=== PATIENT | female | born 1960 | race Caucasian/White ===

== ENCOUNTER → 2017-04-08 | Day surgery (SDC) | payer BC, OTHER ==
[~2017-04-08] VITALS: Ht 160 cm; Wt 79.4 kg
[~2017-04-08] MED LIST: B COTAB6 PO; BACITRACIN PWD 50,000 UNITS VIAL As Ordered ONE; BUPIVACAINE HCL 0.5% 30 ML VIAL As Ordered ONE; FLUT1SPR2; LIDOCAINE 2% INJ 100 MG/5 ML SDV (FOR ANES.) As Ordered ONE; LIDOCAINE 2% MDV 20 ML VIAL As Ordered ONE; LR 1,000 ML IV SCH; MIDAZOLAM INJ 2 MG/2 ML VIAL (J2250) As Ordered ONE; NEOSPORIN GU IRRIG 20 ML VIAL As Ordered ONE; PROBCAP4 PO; PROPOFOL 200 MG/20 ML VIAL As Ordered ONE; RANI150T PO; fentaNYL 100 MCG/2 ML INJECTION (J3010) As Ordered ONE
[2017-04-08] MEDS: dexameTHASONE 4 MG/ML 1ML VIAL (J1100) As Ordered ONE ×2 (07:49→08:06)
[2017-04-08 08:50] VITALS: BP 154/77
--- NOTE | 2017-04-09 00:18 | RO ---
DATE OF PROCEDURE: 04/08/2017 PREPROCEDURE DIAGNOSIS: Mucinoid cyst dorsal aspect right hallux. POSTPROCEDURE DIAGNOSIS: Mucinoid cyst dorsal aspect right hallux. PROCEDURE: Excision of mucinoid cyst with bipedicle lobe rotational flap right foot. SURGEON: Dr. Kota Vargas COMPARATIVE SOCIOLOGY PROFESSOR: None. ANESTHESIA: Local MAC. IRRIGATION: Dilute bacitracin, neomycin and polymyxin B solution. HEMOSTASIS: Ankle pneumatic tourniquet at 250 mmHg for 10 minutes. DESCRIPTION OF PROCEDURE: On 04/08/2017, this 57-year-old white female was taken from her hospital room to the operating room and placed on the operating table in the supine position. Following the induction of IV sedation and local and regional anesthesia, the right lower extremity was prepped and draped in the usual aseptic manner. The right lower extremity was elevated 45 degrees from the horizontal plane for the purpose of preoperative exsanguination of the limb. During this 3-minute time period, an ankle pneumatic tourniquet was applied just proximal to the medial and lateral malleolus, well-padded site. The ankle pneumatic tourniquet was rapidly inflated to 250 mmHg. Right lower extremity was returned to the operating table, sterile draping was completed and the following procedure was performed: Attention was directed to the patient's right foot, and there was noted to be a 1.1 cm mucinoid cyst of the medial aspect of the interphalangeal joint of the hallux. This was sharply excised down to the capsular structures, taking care to encompass the entire cyst, and this was extirpated from the wound and sent to pathology for diagnosis. This was flushed with copious amounts of dilute bacitracin, neomycin and polymyxin B solution. Attention was then directed and a bilobed pedicle flap was created, the first lobe was 0.6 cm from medial to lateral and the second lobe was more triangular, measuring 0.6 cm. This was then undermined and the entire bilobed pedicle was advanced onto the surgical defect. This was closed with a #4-0 Prolene suture in an simple interrupted type fashion. Attention was directed towards bandaging where a compressive dressing was applied consisting of Adaptic, 4 x 4s and Kerlix, followed by Coban. Capillary filling time was immediate to digits 1-5 of the right foot on release of the tourniquet. The patient having apparently tolerated the surgical procedure well was taken from the operating room to the recovery room, vital signs stable, patient afebrile, further monitoring by the anesthesia department. Surgical specimens removed during the operative procedure were sent to pathology for full microscopic examination. Postoperatively instructions given upon discharge.
== END | disposition home or self-care (01) ==
LOC: M SDC 06:12
PROVIDERS: ATTEND Podiatrist
DX: M67.471 Ganglion, right ankle and foot (principal); E03.9 Hypothyroidism, unspecified; K21.9 Gastro-esophageal reflux disease without esophagitis; M54.9 Dorsalgia, unspecified; Z79.899 Other long term (current) drug therapy; Z86.19 Personal history of other infectious and parasitic diseases; Z92.21 Personal history of antineoplastic chemotherapy
CPT/HCPCS: 14020; 88304; J0690; J1100; J2250; J3010

== ENCOUNTER → 2017-06-27 | Outpatient (REF) | payer OTHER ==
[~2017-06-27] MED LIST changes: -BACITRACIN PWD 50,000 UNITS VIAL As Ordered ONE; -BUPIVACAINE HCL 0.5% 30 ML VIAL As Ordered ONE; -LIDOCAINE 2% INJ 100 MG/5 ML SDV (FOR ANES.) As Ordered ONE; -LIDOCAINE 2% MDV 20 ML VIAL As Ordered ONE; -LR 1,000 ML IV SCH; -MIDAZOLAM INJ 2 MG/2 ML VIAL (J2250) As Ordered ONE; -NEOSPORIN GU IRRIG 20 ML VIAL As Ordered ONE; -PROPOFOL 200 MG/20 ML VIAL As Ordered ONE; -fentaNYL 100 MCG/2 ML INJECTION (J3010) As Ordered ONE
== END ==
LOC: M SFHCWAGY 11:17
PROVIDERS: ATTEND Nurse Practitioner Women's Health
DX: Z12.4 Encounter for screening for malignant neoplasm of cervix (principal)

== ENCOUNTER → 2017-06-27 | Outpatient (CLI) | payer BC ==
--- NOTE | 2017-06-27 14:07 | REPMRS ---
Patient History The patient states she had a clinical breast exam in Patient is postmenopausal. Family history of ovarian cancer in paternal aunt, breast cancer in paternal aunt, colorectal cancer in paternal grandmother, and colorectal cancer in maternal uncle. Reconstructions of both breasts, October 21, 2013. Digital Woman Screen Mammo: June 27, 2017 - Exam #: [id number] Bilateral CC and MLO view(s) were taken. Technologist: Claudia Balderas, Technologist Prior study comparison: June 24, 2016, digital woman screen mammo performed at [facility] [employer]. February 28, 2015, digital woman screen mammo performed at [facility] [employer] [facility]. FINDINGS: The breast tissue is heterogeneously dense. This may lower the sensitivity of mammography. There has been no change in the appearance of the mammogram from the prior studies. There is a moderate amount of residual fibroglandular tissue which is fairly symmetric. There is no interval development of dominant mass, areas of architectural distortion, or clustered microcalcification typical of malignancy. ASSESSMENT: BI-RADS/ACR category 1 mammogram. Negative. Recommendation Routine screening mammogram in 1 year (for women over age 40). This mammogram was interpreted with the aid of an FDA-approved computer-aided dectection system. Electronically Signed By: Ronnie Auguste MD 06/27/17 [id number]
== END ==
LOC: M WHC 11:07
PROVIDERS: ATTEND Nurse Practitioner Women's Health
DX: Z12.31 Encounter for screening mammogram for malignant neoplasm of breast (principal)

== ENCOUNTER → 2017-08-23 | Outpatient (CLI) | payer OTHER ==
[2017-08-23 18:59] LABS: MEAN CORPUSCULAR HEMOGLOBIN 32.5 pg (27.0-33.0); MEAN CORPUSCULAR HGB CONC 32.9 g/dl (32.0-36.5); MEAN CORPUSCULAR VOLUME 98.6 fl (80.0-96.0); PLATELET COUNT, AUTOMATED 344 10^3/uL (150-450); RED CELL DISTRIBUTION WIDTH 13.1 % (11.5-14.5); WHITE BLOOD COUNT 5.7 10^3/uL (4.0-10.0)
[2017-08-23 21:12] LABS: ERYTHROCYTE SEDIMENTATION RATE 22 mm/hr (0-30)
== END ==
LOC: M WUC 11:22
PROVIDERS: ATTEND Physician Assistant
DX: M54.2 Cervicalgia (principal)

== ENCOUNTER → 2018-06-28 | Outpatient (REF) | payer OTHER ==
[2018-06-28 15:05] LABS: FREE T4 1.06 NG/DL (0.76-1.46)
== END ==
LOC: M LABDRAW1 11:59
DX: E03.9 Hypothyroidism, unspecified (principal)

== ENCOUNTER → 2018-06-28 | Outpatient (CLI) | payer BC | LOC: M WHC 11:17 | DX: Z12.31 Encounter for screening mammogram for malignant neoplasm of breast (principal) | CPT/HCPCS: 77067 ==

== ENCOUNTER → 2019-02-23 | Outpatient (CLI) | payer OTHER ==
[2019-02-23 12:45] LABS: BASO % 0.4 % (0.0-1.0); EOS # 0.1 10^3/uL (0.0-0.50); EOS % 2.2 % (0.0-3.0); HEMATOCRIT 41.7 % (36.0-47.0); HEMOGLOBIN 13.9 g/dl (12.0-15.5); LYMPH # 1.5 10^3/uL (1.5-4.5); LYMPH % 26.6 % (24.0-44.0); MEAN CORPUSCULAR HEMOGLOBIN 33.5 pg (27.0-33.0); MEAN CORPUSCULAR HGB CONC 33.3 g/dl (32.0-36.5); MEAN CORPUSCULAR VOLUME 100.5 fl (80.0-96.0); MONO # 0.6 10^3/uL (0.0-0.8); NEUTROPHILS # 3.3 10^3/uL (1.8-7.7); NEUTROPHILS % 60.6 % (36.0-66.0); PLATELET COUNT, AUTOMATED 275 10^3/uL (150-450); RED BLOOD COUNT 4.15 10^6/uL (4.00-5.40); WHITE BLOOD COUNT 5.5 10^3/uL (4.0-10.0)
[2019-02-23 12:59] LABS: ALBUMIN 3.5 GM/DL (3.2-5.2); ALT/SGPT 32 U/L (12-78); BILIRUBIN,TOTAL 0.6 MG/DL (0.2-1.0); BLOOD UREA NITROGEN 13 MG/DL (7-18); CALCIUM LEVEL 8.7 MG/DL (8.5-10.1); CARBON DIOXIDE LEVEL 31 MEQ/L (21-32); CHLORIDE LEVEL 107 MEQ/L (98-107); CHOLESTEROL LEVEL 192 MG/DL (<200); CREATININE FOR GFR 0.72 MG/DL (0.55-1.30); GLOMERULAR FILTRATION RATE > 60.0 (>51); GLUCOSE, FASTING 94 MG/DL (70-100); HDL CHOLESTEROL 75 MG/DL (>40); IRON (FE) 104 UG/DL (50-170); LDL CHOLESTEROL 93 MG/DL (<100); NON-HDL-C 117 MG/DL; PERCENT SATURATION 34.7 % (13.2-45.0); POTASSIUM SERUM 4.7 MEQ/L (3.5-5.1); SODIUM LEVEL 141 MEQ/L (136-145); TOTAL IRON BINDING CAPACITY 300 UG/DL (250-450); TOTAL PROTEIN 6.7 GM/DL (6.4-8.2); TRIGLYCERIDES LEVEL 121 MG/DL (<150)
== END ==
LOC: M WUC 09:21
PROVIDERS: ATTEND Nurse Practitioner Family
DX: E03.9 Hypothyroidism, unspecified (principal); D50.8 Other iron deficiency anemias

== ENCOUNTER → 2019-06-29 | Outpatient (CLI) | payer BC ==
--- NOTE | 2019-06-29 13:29 | REP ---
BILATERAL SCREENING DIGITAL MAMMOGRAM WITH 3D TOMOSYNTHESIS: There are no palpable abnormalities or other breast complaints. The the patient states she had a clinical breast examination June,. The the patient states she performs self-breast examinations four times per year. The Tyrer-Cuzick Score is: 9.3% . Comparison studies are 02/28/2015, 06/24/2016, 06/27/2017 and 06/28/2018. The patient had bilateral breast reconstruction October 2013. There are scattered areas of fibroglandular density. There is no dominant mass, micro calcific cluster or architectural distortion that would indicate malignancy. There are benign calcifications and a stable oil cyst posterosuperiorly in the right breast, unchanged. There are no additional findings on 3D tomosynthesiss. There is no change from the prior studies. Impression: BIRADS/ACR category 2 mammogram. Benign findings. Recommendation: Routine annual screening mammography. This mammogram was interpreted with the aid of a FDA approved computer-aided detection system. A. Negative mammogram reports should not delay biopsy if a dominant or clinically suspicious mass is present. B. Not all breast cancers are identified by mammography or tomosynthesis. C. Adenosis and dense breasts may obscure an underlying neoplasm. Patient letter M1. Electronically Signed by Ronnie Musa MD 06/29/2019 01:20 P
== END ==
LOC: M WHC 10:43
PROVIDERS: ATTEND Nurse Practitioner Women's Health
DX: Z12.31 Encounter for screening mammogram for malignant neoplasm of breast (principal)

== ENCOUNTER → 2019-07-27 | Outpatient (CLI) | payer OTHER, BC ==
[2019-07-27 16:34] LABS: C REACTIVE PROTEIN QUANTITATIV 1.25 MG/DL (0.00-0.30); RHEUMATOID FACTOR QUANT < 10.0 IU/ML (<15.0)
[2019-07-27 16:35] LABS: BASO % 0.5 % (0.0-1.0); EOS # 0.2 10^3/uL (0.0-0.5); EOS % 2.8 % (0.0-3.0); HEMATOCRIT 44.3 % (36.0-47.0); HEMOGLOBIN 14.5 g/dl (12.0-15.5); LYMPH # 1.5 10^3/uL (1.5-5.0); LYMPH % 22.9 % (24.0-44.0); MEAN CORPUSCULAR HEMOGLOBIN 33.1 pg (27.0-33.0); MEAN CORPUSCULAR HGB CONC 32.7 g/dl (32.0-36.5); MEAN CORPUSCULAR VOLUME 101.1 fl (80.0-96.0); MONO # 0.6 10^3/uL (0.0-0.8); NEUTROPHILS # 4.1 10^3/uL (1.5-8.5); NEUTROPHILS % 63.3 % (36.0-66.0); PLATELET COUNT, AUTOMATED 336 10^3/uL (150-450); RED BLOOD COUNT 4.38 10^6/uL (4.00-5.40); WHITE BLOOD COUNT 6.4 10^3/uL (4.0-10.0)
[2019-07-27 17:11] LABS: ERYTHROCYTE SEDIMENTATION RATE 34 mm/hr (0-30)
== END ==
LOC: M WUC 10:51
PROVIDERS: ATTEND Physician Assistant
DX: M47.896 Other spondylosis, lumbar region (principal)

== ENCOUNTER → 2019-09-19 | Day surgery (SDC) | payer BC, OTHER ==
[~2019-09-19] VITALS: Ht 160 cm; Wt 91.5 kg
[~2019-09-19] MED LIST changes: +IRON65TA2 PO; +LEVO50TA45 PO; +LIDOCAINE 2% INJ 100 MG/5 ML SDV (FOR ANES.) As Ordered ONE; +NS 1,000 ML IV SCH; +OMEP40CA97 PO; +PROPOFOL 200 MG/20 ML VIAL As Ordered ONE; +RA T500C2 PO; +SUPETAB44 PO; +fentaNYL 100 MCG/2 ML INJECTION (J3010) As Ordered ONE
--- NOTE | 2019-09-19 12:43 | ROOR ---
Patient Name: Jillian Bo Procedure Date: 09/19/2019 12:25 PM Date of : 1960 Age: 59 Room: [facility] Gender: Female Note Status: Finalized Procedure: Upper Endoscopy + Biopsies Indications: Heartburn, Exclusion of Linton's esophagus Providers: Damaso Tan MD Referring MD: Dinorah WalkerClovis)RASHEEDA Requesting Provider: Medicines: Monitored Anesthesia Care Complications: No immediate complications. Procedure: Pre-Anesthesia Assessment: - The heart rate, respiratory rate, oxygen saturations, blood pressure, adequacy of pulmonary ventilation, and response to care were monitored throughout the procedure. The Endoscope was introduced through the mouth, and advanced to the second part of duodenum. The upper GI endoscopy was accomplished without difficulty. The patient tolerated the procedure well. Findings: The Z-line was irregular and was found 35 cm from the incisors. Multiple biopsies were obtained with cold forceps for evaluation to rule out Linton's Esophagus randomly at the gastroesophageal junction. A small hiatal hernia was present. Localized mildly erythematous mucosa without bleeding was found in the gastric antrum. Biopsies were taken with a cold forceps for Helicobacter pylori testing. The exam of the duodenum was otherwise normal. Impression: - Z-line irregular, 35 cm from the incisors. - Small hiatal hernia. - Erythematous mucosa in the antrum. Biopsied. - Multiple biopsies were obtained at the gastroesophageal junction. - The examination was otherwise normal. Recommendation: - Patient has a contact number available for emergencies. The signs and symptoms of potential delayed complications were discussed with the patient. Return to normal activities tomorrow. Written discharge instructions were provided to the patient. - High fiber diet. - Discharge patient to home. - Follow an antireflux regimen. - Continue present medications. - Await pathology results. - Telephone GI clinic for pathology results in 1 week. - Return to referring physician. - The findings and recommendations were discussed with the patient's family. Damaso Tan MD Damaso Tan MD 09/19/2019 12:43:19 PM Electronically signed by Damaso Tan MD Number of Addenda: 0 Note Initiated On: 09/19/2019 12:25 PM Estimated Blood Loss: Estimated blood loss: none.
[2019-09-19 13:13] VITALS: BP 156/96
== END | disposition home or self-care (01) ==
LOC: M OPP 10:40
PROVIDERS: ATTEND Internal Medicine Gastroenterology
DX: K22.8 Other specified diseases of esophagus (principal); K44.9 Diaphragmatic hernia without obstruction or gangrene; K31.89 Other diseases of stomach and duodenum; K21.9 Gastro-esophageal reflux disease without esophagitis; R13.10 Dysphagia, unspecified; R12 Heartburn; Z79.899 Other long term (current) drug therapy
CPT/HCPCS: 43239; 88305; J3010

== ENCOUNTER → 2020-06-30 | Outpatient (REF) | payer BC, OTHER ==
[~2020-06-30] MED LIST changes: -LIDOCAINE 2% INJ 100 MG/5 ML SDV (FOR ANES.) As Ordered ONE; -NS 1,000 ML IV SCH; -PROPOFOL 200 MG/20 ML VIAL As Ordered ONE; -fentaNYL 100 MCG/2 ML INJECTION (J3010) As Ordered ONE
== END ==
LOC: M SFHCWAGY 13:03
PROVIDERS: ATTEND Nurse Practitioner Women's Health
DX: Z12.4 Encounter for screening for malignant neoplasm of cervix (principal); R87.610 Atypical squamous cells of undetermined significance on cytologic smear of cervix (ASC-US)
CPT/HCPCS: 87624; G0123

== ENCOUNTER → 2020-06-30 | Outpatient (CLI) | payer BC ==
--- NOTE | 2020-06-30 12:41 | REPMRS ---
Patient History The patient states she had a clinical breast exam in June 2020. Family history of colorectal cancer in paternal grandmother, breast cancer in paternal aunt, colorectal cancer in maternal uncle, ovarian cancer in paternal aunt, colorectal cancer at age 50 or over in paternal uncle, colorectal cancer at age 50 or over in paternal uncle, pancreatic cancer at age 39 in father. Reconstructions of both breasts, October 21, 2013. No Hormone Replacement Therapy 3D TOMOSYNTHESIS WAS PERFORMED. The [facility] lifetime risk for breast cancer is 9.0%. VOLPARA DENSITY B. Digital Woman Screen Mammo: June 30, 2020 - Exam #: [id number] Bilateral CC and MLO view(s) were taken. Technologist: RT Brittany Prior study comparison: June 29, 2019, bilateral digital woman screen mammo performed at [facility]. June 28, 2018, bilateral digital woman screen mammo performed at [facility]. FINDINGS: The breast tissue is heterogeneously dense. This may lower the sensitivity of mammography. There has been no change in the appearance of the mammogram from the prior studies. There is a moderate amount of residual fibroglandular tissue which is fairly symmetric. There is no interval development of dominant mass, areas of architectural distortion, or clustered microcalcification typical of malignancy. Assessment: BI-RADS/ACR category 1 mammogram. Negative Mammogram. Recommendation Routine screening mammogram in 1 year (for women over age 40). This mammogram was interpreted with the aid of an FDA-approved computer-aided dectection system. Electronically Signed By: Ronnie Auguste MD 06/30/20 [id number]
== END ==
LOC: M WHC 10:32
PROVIDERS: ATTEND Nurse Practitioner Women's Health
DX: Z12.31 Encounter for screening mammogram for malignant neoplasm of breast (principal); Z80.0 Family history of malignant neoplasm of digestive organs

== ENCOUNTER → 2020-07-03 | Outpatient (REF) | payer BC, OTHER | LOC: M LAB REF 12:40 | PROVIDERS: ATTEND Nurse Practitioner Adult Health | DX: R20.1 Hypoesthesia of skin (principal) ==

== ENCOUNTER → 2021-07-22 | Outpatient (CLI) | payer BC, OTHER ==
[~2021-07-22] MED LIST changes: +OMEP40CA4 PO; -OMEP40CA97 PO
--- NOTE | 2021-07-22 11:16 | REPMRS ---
Patient History The patient states she had a clinical breast exam in July 2021. Patient is postmenopausal. Family history of colorectal cancer in paternal grandmother, breast cancer in paternal aunt, colorectal cancer in maternal uncle, ovarian cancer in paternal aunt, colorectal cancer at age 50 or over in paternal uncle, colorectal cancer at age 50 or over in paternal uncle, pancreatic cancer at age 39 in father. Reconstructions of both breasts, October 21, 2013. No Hormone Replacement Therapy 10 lb intentional weight loss. Patient states no breast complaints today. Patient has signed MRS History Sheet. Digital Woman Screen Mammo: July 22, 2021 - Exam #: [id number] Bilateral CC and MLO view(s) were taken. Technologist: RT Brittany Prior study comparison: June 30, 2020, bilateral digital woman screen mammo performed at [facility]. June 29, 2019, bilateral digital woman screen mammo performed at [facility]. FINDINGS: There are scattered fibroglandular densities. Screening. Digital screening (2D) mammography was performed bilaterally in the CC and MLO projections. Additionally, breast tomosynthesis (3D mammography) was performed bilaterally in the CC and MLO projections. Todays exam was compared to the prior exam/exams. By history, the patient has no complaints of a palpable breast abnormality or other significant breast complaints. The breasts are unchanged in size and shape. There are no luke-soft tissue densities or spiculated masses. There is no internal architectural distortion. Once again, stable benign appearing calcifications are seen.There are no suspicious luke-calcific clusters. Skin thickening or nipple retraction is not present. IMPRESSION: BI-RADS Category 2- Benign Findings. There is no evidence of malignant alteration of the breasts. Followup examination recommended in one year. The Volpara volumetric breast density category is B, there are scattered areas of fibroglandular densities. This mammogram was read with the assistance of [employer],an FDA approved computer aided detection system for mammography. The lifetime Tyrer-Cuzick score is 8.7 % Negative x-ray reports should not delay surgical consultation if a dominant or clinically suspicious mass is present. Not all breast cancers can be identified by mammography. Therefore, we recommend that you continue to perform regular breast self-examination and physical examination and then promptly contact your physician of any concerns or changes. Adenosis and dense breasts may obscure an underlying neoplasm. Assessment: BI-RADS/ACR category 2 mammogram. Benign Findings. Recommendation Routine screening mammogram of both breasts in 1 year. Electronically Signed By: Jorge Aleman DO 07/22/21 [id number]
== END ==
LOC: M WHC 09:38
PROVIDERS: ATTEND Nurse Practitioner Women's Health
DX: Z12.31 Encounter for screening mammogram for malignant neoplasm of breast (principal)

== ENCOUNTER → 2022-04-14 | Outpatient (REF) | payer OTHER | LOC: M LAB REF 12:12 | PROVIDERS: ATTEND Nurse Practitioner Adult Health | DX: R53.83 Other fatigue (principal) ==

== ENCOUNTER → 2022-07-19 | Outpatient (CLI) | payer OTHER ==
[2022-07-19 12:36] LABS: BASO % 0.6 % (0.0-1.0); EOS # 0.1 10^3/uL (0.0-0.5); EOS % 1.9 % (0.0-3.0); HEMATOCRIT 40.2 % (36.0-47.0); HEMOGLOBIN 13.3 g/dl (12.0-15.5); LYMPH # 1.8 10^3/uL (1.5-5.0); LYMPH % 27.5 % (24.0-44.0); MEAN CORPUSCULAR HEMOGLOBIN 32.4 pg (27.0-33.0); MEAN CORPUSCULAR HGB CONC 33.1 g/dl (32.0-36.5); MEAN CORPUSCULAR VOLUME 97.8 fl (80.0-96.0); MONO # 0.6 10^3/uL (0.0-0.8); MONO % 8.7 % (2.0-8.0); NEUTROPHILS # 3.9 10^3/uL (1.5-8.5); NEUTROPHILS % 61.1 % (36.0-66.0); PLATELET COUNT, AUTOMATED 302 10^3/uL (150-450); RED BLOOD COUNT 4.11 10^6/uL (4.00-5.40); WHITE BLOOD COUNT 6.4 10^3/uL (4.0-10.0)
[2022-07-19 13:12] LABS: RHEUMATOID FACTOR QUANT < 10.0 IU/ML (<15.0)
[2022-07-19 13:32] LABS: ERYTHROCYTE SEDIMENTATION RATE 22 mm/hr (0-30)
== END ==
LOC: M WUC 09:59
PROVIDERS: ATTEND Physician Assistant
DX: M54.50 Low back pain, unspecified (principal)

== ENCOUNTER → 2024-05-28 | Outpatient (REF) | payer BC, OTHER ==
[2024-05-28 13:01] LABS: APPEARANCE, URINE HAZY (CLEAR); BACTERIA, URINE AUTO 1+ (NEGATIVE); BILIRUBIN, URINE AUTO NEGATIVE (NEGATIVE); BLOOD, URINE BLOOD NEGATIVE (NEGATIVE); COLOR, URINE YELLOW (YELLOW); GLUCOSE, URINE (UA) AUTO NEGATIVE (NEGATIVE); KETONE, URINE AUTO NEGATIVE (NEGATIVE); LEUKOCYTE ESTERASE, URINE AUTO TRACE (NEGATIVE); MUCUS, URINE SMALL (NEGATIVE); NITRITE, URINE AUTO NEGATIVE (NEGATIVE); PROTEIN, URINE AUTO NEGATIVE (NEGATIVE); RBC, URINE AUTO 1 /HPF (0-3); SPECIFIC GRAVITY URINE AUTO 1.014 (1.002-1.035); SQUAMOUS EPITHELIAL CELL UR AU 5 /HPF (0-6); UROBILINOGEN, URINE AUTO 0.2 mg/dL (0.0-2.0); WBC, URINE AUTO 6 /HPF (0-3)
== END ==
LOC: M SMT 12:12
PROVIDERS: ATTEND Specialist
DX: R10.2 Pelvic and perineal pain (principal)